=== PATIENT | male | born 1985 | race Two or more races ===

== ENCOUNTER 2020-09-01 02:00 | Emergency (ER) | payer SELFPAY ==
[~2020-09-01] VITALS: Ht 167.6 cm; Wt 84.8 kg
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
[2020-09-01] MEDS ORDERED: SODIUM BICARBONATE 5 ML VIAL ONE (02:38)
[2020-09-01] MEDS ORDERED: CEPHALEXIN MONOHYDRATE 500 MG CAPSULE PO ONE ×2 (02:39→03:00)
[2020-09-01] MEDS ORDERED: ONDANSETRON 4 MG TAB.RAPDIS ONE (02:39)
[2020-09-01] MEDS ORDERED: LIDOCAINE 1%-EPI 1:100,000 20 ML VIAL ONE (02:39)
[2020-09-01] MEDS ORDERED: HYDROCODONE/APAP 10/325MG TABLET ONE (02:39)
--- NOTE | 2020-09-01 02:44 | NUR ---
xray at bedside
--- NOTE | 2020-09-01 02:45 | NUR ---
emt at bedside for wound care
[2020-09-01] MEDS ORDERED: LIDOCAINE 1%-EPI 1:100,000 20 ML VIAL TP ONE (03:00)
[2020-09-01] MEDS ORDERED: ONDANSETRON 4 MG TAB.RAPDIS SL ONE (03:00)
[2020-09-01] MEDS ORDERED: HYDROCODONE/APAP 10/325MG TABLET PO ONE (03:00)
[2020-09-01] MEDS ORDERED: SODIUM BICARBONATE 5 ML VIAL MC ONE (03:00)
[2020-09-01] MEDS ORDERED: HYDR-4209 PO (03:37)
[2020-09-01] MEDS ORDERED: CEPH500C2 PO (03:37)
--- NOTE | 2020-09-01 04:10 | NUR ---
Patient discharged to home in stable condition. Written and verbal after care instructions given. Patient verbalizes understanding of instruction. pT ambulatory with a steady gait
[2020-09-01 04:27] VITALS: BP 139/69
== END 2020-09-01 04:15 | disposition home or self-care (01) ==
LOC: ER 02:03
DX: S01.01XA Laceration without foreign body of scalp, initial encounter (principal); S80.12XA Contusion of left lower leg, initial encounter; Z60.2 Problems related to living alone; W22.8XXA Striking against or struck by other objects, initial encounter; Y93.89 Activity, other specified; Y92.89 Other specified places as the place of occurrence of the external cause; Y99.8 Other external cause status
CPT/HCPCS: 12002; 73590; 93971; 99284; J3490 ×2; Q0162